=== PATIENT | female | born 1970 | race Caucasian/White ===

== ENCOUNTER 2018-12-11 15:56 | Emergency (ER) | payer BC, OTHER ==
[~2018-12-11] VITALS: Ht 160 cm; Wt 88.5 kg
[2018-12-11] MEDS ORDERED: BUPIVACAINE 0.5% 30 ML (SENSORCAINE) VIAL ONE (16:16)
[2018-12-11] MEDS ORDERED: BUPIVACAINE 0.5% 30 ML (SENSORCAINE) VIAL INJ ONE (16:30)
--- NOTE | 2018-12-11 16:30 | ED Upper Extremity ---
General Chief Complaint: Upper Extremity Stated Complaint: R HAND PAIN Nursing Triage Note: PT AMB TO TRIAGE WITH COMPLAINT OF RIGHT PINKY FINGER DISLOCATION. STATES SHE WAS REACHING FOR AN ICE CHEST THAT FELL. STATES SHE DISLOCATED HER RIGHT RING FINGER ALSO, BUT WAS ABLE TO GET THE FINGER BACK IN PLACE. Nursing Sepsis Screen: No Definite Risk Source: patient Exam Limitations: no limitations History of Present Illness Date Seen by Provider: Dec 11, 2018 Time Seen by Provider: 16:29 Initial Comments To ER with the right pinky finger dislocation. She was reaching for an ice chest and fell when the ring finger and pinky finger or hyperextended. She was able to pull on the ring finger and straightened it out, the pinky finger remains dislocated. She is from [facility] but states that she likes our hospital better. No other injury. Onset: just prior to arrival Severity: moderate Pain/Injury Location: right 5th finger Modifying Factors: Worse With Movement Allergies and Home Medications Allergies Coded Allergies: promethazine (Verified Allergy, Mild, 12/11/18) egg (Verified Allergy, Unknown, 12/11/18) Patient Home Medication List Home Medication List Reviewed: Yes Review of Systems Constitutional: see HPI EENTM: see HPI Respiratory: no symptoms reported Cardiovascular: no symptoms reported Genitourinary: no symptoms reported Musculoskeletal: see HPI Skin: no symptoms reported Psychiatric/Neurological: No Symptoms Reported Past Nvvsest-Tvdrol-Iaezdn Hx Patient Social History Alcohol Use: Denies Use Recreational Drug Use: No Smoking Status: Never a Smoker Recent Foreign Travel: No Contact w/Someone Who Travel: No Recent Infectious Disease Expo: No Recent Hopitalizations: No Immunizations Up To Date Tetanus Booster (TDap): Unknown Seasonal Allergies Seasonal Allergies: No Past Medical History Surgeries: Yes Tonsillectomy Respiratory: No Cardiac: Yes Hypertension Neurological: No Genitourinary: No Gastrointestinal: No Musculoskeletal: No Endocrine: No HEENT: No Cancer: No Psychosocial: Yes Anxiety Integumentary: No Physical Exam Vital Signs Vital Signs - First Documented 12/11/18 16:16 Pulse 97 Resp 16 B/P (MAP) 181/106 (131) Pulse Ox 98 O2 Delivery Room Air Capillary Refill : Less Than 3 Seconds Height, Weight, BMI Height: 5'3.00" Weight: 195lbs. oz. 88.839374ch; BMI Method:Stated General Appearance: WD/WN, no apparent distress HEENT: PERRL/EOMI, normal ENT inspection Respiratory: no respiratory distress, no accessory muscle use Shoulder: normal inspection, non-tender Elbow/Forearm: normal inspection, non-tender Wrist: Yes normal inspection, Yes non-tender Hand: ecchymosis, limited ROM (there is extension with inability to flex at the PIP joint, fixed flexion at the DIP joint.) Neurologic/Psychiatric: alert, normal mood/affect, oriented x 3 Skin: normal color, warm/dry Procedures/Interventions Additional Procedures: Digital Block Progress I did a digital nerve block using 3 mL of 0.5% Marcaine without epinephrine. This was allowed to work for about 30 minutes, anger was then reduced as the PIP joint was dislocated. We will obtain postreduction x-rays. Progress/Results/Core Measures Results/Orders My Orders Orders - SHERON SHARIF APRN Bupivacaine 0.5% Injection (Sensorcaine (12/11/18 16:30) Bupivacaine 0.5% Injection (Sensorcaine (12/11/18 16:16) Hand, Right, 3 Views (12/11/18 16:29) Medications Given in ED Current Medications Medications Dose Ordered Sig/Michelle Route Start Time Stop Time Status Last Admin Dose Admin Bupivacaine HCl 3 ml ONCE ONCE INJ 12/11/18 16:30 12/11/18 16:31 DC 12/11/18 16:26 3 ML Vital Signs/I&O 12/11/18 16:16 Pulse 97 Resp 16 B/P (MAP) 181/106 (131) Pulse Ox 98 O2 Delivery Room Air Blood Pressure Mean: 131 Departure Communication (Admissions) She complains of some pain to the volar aspect of the forearm right hand. She had this before with previous finger injury and was given Flexeril and it helped. Impression Primary Impression: Finger dislocation Qualified Codes: S63.259A - Unspecified dislocation of unspecified finger, initial encounter Disposition: 01 HOME, SELF-CARE Condition: Stable Departure-Patient Inst. Decision time for Depature: 17:23 Referrals: BHARAT JUAREZ MD,JANA Brito JR, MD (PCP) Primary Care Physician UZAIR TRACEY JOHN T MD ZAFUTA, MICHAEL P MD Patient Instructions: Finger Dislocation Add. Discharge Instructions: 1. Medication as directed.. This is Tylenol and ibuprofen for pain control in addition to an ice pack over the finger, splint at all times except when showering for about one week and Flexeril for forearm pain. 2. Return to ER for any concerns 3. Follow-up with your orthopedic surgeon for evaluation of the ligamentous structures of the finger. All discharge instructions reviewed with patient and/or family. Voiced understanding. Scripts Cyclobenzaprine HCl (Cyclobenzaprine HCl) 10 Mg Tablet 10 MG PO BID PRN for SPASMS, #15 TAB 0 Refills Prov: SHERON SHARIF APRN 12/11/18 SHERON SHARIF APRN Dec 11, 2018 16:30
[2018-12-11] MEDS ORDERED: CYCL10TA9 PO (17:25)
[2018-12-11 17:55] VITALS: BP 134/86
--- NOTE | 2018-12-11 21:35 | Diagnostic Imaging Report ---
INDICATION: Right hand injury. TIME OF EXAM: 5:28 p.m. TECHNIQUE: Three views of the right hand were obtained. FINDINGS: Metacarpals are intact. Phalanges appear intact. No fractures are seen. IMPRESSION: No acute bony abnormality is detected. Dictated by: Dictated on workstation # [id number]
== END 2018-12-11 17:54 | disposition home or self-care (01) ==
LOC: ER 15:58
DX: S63.276A Dislocation of unspecified interphalangeal joint of right little finger, initial encounter (principal); I10 Essential (primary) hypertension; F41.9 Anxiety disorder, unspecified; Z90.89 Acquired absence of other organs; Z88.8 Allergy status to other drugs, medicaments and biological substances; W20.8XXA Other cause of strike by thrown, projected or falling object, initial encounter
CPT/HCPCS: 73130; 99282